=== PATIENT | male | born 1975 | race Caucasian/White ===

== ENCOUNTER 2023-10-21 09:46 | Outpatient (CLI) | payer BC, SELFPAY ==
--- NOTE | 2023-10-21 10:00 | CT_ITS ---
Patient: [facility] Facility:?[facility] Patient ID:?[id number] Site Patient ID:?[id number]. Site :?[id number] Study:?CT-Sinus WITHOUT-10/21/2023 10:34:17 AM Ordering Physician:?DR. LAWSON Final Report: Indication: CHRONIC SINUSITIS. MULLEN LEFT SIDE OF NOSE TO TOP OF HEAD Technique: Performed without IV contrast Comparison: None available Findings: Frontal sinuses: Clear. Ethmoid sinuses: Partial opacification of the left ethmoid sinus involving 1 of the middle air cells. Clear right ethmoid sinus. Maxillary sinuses: Mucous retention cyst within the left maxillary sinus is present measuring 2.3 cm. Small mucous retention cyst right maxillary sinus measures 6 millimeters. The maxillary sinus drainage pathways are patent on both sides. Sphenoid sinuses: Clear, including both sphenoethmoidal recesses. Nasal Cavity: Rightward curvature of the nasal septum. No nasal polyps. No TMJ abnormalities identified. The visualized portions of the orbits, intracranial contents and upper soft tissue neck are grossly negative. Impression: 1. Bilateral maxillary sinus disease without obstruction of the sinus drainage pathways. 2. Mild curvature of the nasal septum. Please note that all CT scans at this facility use dose modulation, iterative reconstruction, and/or weight-based dosing when appropriate to reduce radiation dose to as low as reasonably achievable. Dictated by Linwood Victor MD @ 10/21/2023 12:31:01 PM Signed by:?Linwood Victor MD @10/21/2023 12:31:01 PM (Electronic Signature)
== END 2023-10-21 09:47 | disposition home or self-care (01) ==
LOC: CT 09:47
PROVIDERS: Visit Provider Otolaryngology
DX: J32.9 Chronic sinusitis, unspecified (principal); J32.0 Chronic maxillary sinusitis; J34.2 Deviated nasal septum
CPT/HCPCS: 70486